=== PATIENT | female | born 1935 | race Caucasian/White ===

== ENCOUNTER → 2017-03-22 | Outpatient (CLI) | payer OTHER ==
[~2017-03-22] MED LIST: AGRYLIN0.5 MG PO; ALEVE220 MG PO; ALLOPURINOL 10100 M1 PO; ASPIR 8181 MG PO; CALCIUM 500 +1 EAC5 PO; COMPAZINE10 M2 PO; COZAAR 50 MG TA50 M2 PO; HYDROCHLOROTHIA25 M1 PO; HYDROCODONE-AP1 EAC6 PO; LIPITOR10 MG PO; LOPRESSOR100 M1 PO; MULTIVITAMINS1 EAC7 PO; NORVASC10 MG PO; NORVASC5 MG PO; VITAMIN D 5050000 I1 PO; VITAMIN D31000 UNI2 PO; ZYRTEC10 M5 PO
[2017-03-22 11:07] VITALS: BP 130/53; BP 143/61
[2017-03-22 13:19] VITALS: BP 143/61; BP 146/55; BP 147/67
== END ==
LOC: OPONC 06:49
DX: D46.9 Myelodysplastic syndrome, unspecified (principal)
CPT/HCPCS: 91030